=== PATIENT | female | born 1955 | race African-American/Black ===

== ENCOUNTER 2018-05-13 20:30 | Emergency (ER) | payer BC ==
[2018-05-13 20:47] VITALS: BMI 25.3
--- NOTE | 2018-05-13 20:47 | PDOC ---
Rapid Medical Evaluation Medical Evaluation: I have performed a brief in-person evaluation of this patient. The patient presents with a chief complaint of: eating a piece of steak and felt choking sensation around 1.5 hours ago; someone attempted Heimlich but instead of meat coming out, it moved down; feels it is now stuck in the esophagus Pertinent physical exam findings: In NAD, no respiratory distress I have ordered the following: CT chest The patient will proceed to the ED for further evaluation. 05/13/18 20:42
--- NOTE | 2018-05-13 23:37 | PDOC ---
*Physical Exam - Vital Signs Last Vital Signs Temp Pulse Resp BP Pulse Ox 97.1 F L 100 H 16 179/92 H 98 05/13/18 20:45 05/13/18 20:45 05/13/18 20:45 05/13/18 20:45 05/13/18 20:45 Medical Decision Making - Medical Decision Making 05/13/18 23:37 Patient seen by the advanced practice provider under my direct supervision. Ancillary testing reviewed as necessary. I agree with plan as outlined by the advanced practice provider. *DC/Admit/Observation/Transfer Diagnosis at time of Disposition: Choking sensation, Lung cyst - Discharge Dispostion Disposition: HOME Condition at time of disposition: Fair - Referrals Referrals: ON STAFF,NOT [Primary Care Provider] - - Patient Instructions Additional Instructions: The CAT scan showed multiple pulmonary cysts in both lungs. Continue to follow-up with her primary doctor as an outpatient for evaluation of this CT finding. The CAT scan showed no airway obstruction or retained foreign body. Return to emergency department for any new or worsening symptoms. Thank you very much for choosing us to provide your emergent health care needs. - Post Discharge Activity
--- NOTE | 2018-05-13 23:54 | PDOC ---
History of Present Illness - General Chief Complaint: Sore Throat Stated Complaint: CHOCKING ON MEAT ONE HOUR AGO Time Seen by Provider: 05/13/18 20:41 History Source: Patient Exam Limitations: No Limitations - History of Present Illness Initial Comments: 05/13/18 23:52 HISTORY OF PRESENT ILLNESS: This 70-year-old woman past medical history of non- insulin-dependent diabetes presents emergency department for evaluation of choking while eating dinner tonight. Patient reports she ate a piece of beef emulsion was a pain attention and did not thoroughly chew she tried to swallow causing her to have a choking sensation. She reports gagging and attempted to perform the Heimlich maneuver on herself and drinking water. This did not clear up the sensation. Patient then ran into the hallway of her apartment building and had a neighbor try to perform abdominal thrusts until eventually the food bolus was able to pass in the choking sensation subsided. Patient reports when she arrived in the emergency department she felt the food was "stuck in my stomach." No recent travel or sick contacts. PAST MEDICAL HISTORY: see HPI SURGICAL HISTORY: Denies ALLERGIES: No known drug allergies REVIEW OF SYSTEMS General/Constitutional: Denies fever or chills. Denies weakness, weight change. HEENT: Denies change in vision. Denies ear pain or discharge. Denies sore throat. Cardiovascular: Denies chest pain or shortness of breath. Respiratory: see HPI Gastrointestinal: Denies nausea, vomiting, diarrhea or constipation. Denies rectal bleeding. Genitourinary: Denies dysuria, frequency, or change in urination. Musculoskeletal: Denies joint or muscle swelling or pain. Denies neck or back pain. Skin and breasts: Denies rash or easy bruising. Neurologic: Denies headache, vertigo, loss of consciousness, or loss of sensation. Psychiatric: Denies depression or anxiety. Endocrine: Denies increased thirst. Denies abnormal weight change. Hematologic/Lymphatic: Denies anemia, easy bleeding, or history of blood clots. Allergic/Immunologic: Denies hives or skin allergy. Denies latex allergy. PHYSICAL EXAM General Appearance: Well-appearing, appropriately dressed. No apparent distress , no intoxication. HEENT: EOMI, PERRLA, normal ENT inspection, normal voice, TMs normal, pharynx normal. No conjunctival pallor. No photophobia, scleral icterus. Neck: Supple. Trachea midline. No tenderness, rigidity, carotid bruit, stridor , lymphadenopathy, or thyromegaly. Respiratory/Chest: Lungs CTAB. No shortness of breath, chest tenderness, respiratory distress, accessory muscle use. No crackles, rales, rhonchi, stridor , wheezing, dullness Cardiovascular: RRR. S1, S2. No JVD, murmur, bradycardia, tachycardia. Vascular Pulses: Dorsalis-Pedis (R): 2+, Dorsalis-Pedis (L): 2+ Gastrointestinal/Abdominal: Normal bowel sounds. Abdomen soft, non-distended. No tenderness or rebound tenderness. No organomegaly, pulsatile mass, guarding, hernia, hepatomegaly, splenomegaly. Lymphatic: No adenopathy, tenderness. Musculoskeletal/Extremities: Normal inspection. FROM of all extremities, normal capillary refill. Pelvis Stable. No CVA tenderness. No tenderness to extremities, pedal edema, swelling, erythema or deformity. Integumentary: Appropriate color, dry, warm. No cyanosis, erythema, jaundice or rash Neurologic: metal furniture assembler II-XII intact. Fully oriented, alert. Appropriate mood/affect. Motor strength 5/5. No appreciable EOM palsy, facial droop or sensory deficit. Past History - Past Medical History Allergies/Adverse Reactions: Allergies Allergy/AdvReac Type Severity Reaction Status Date / Time No Known Allergies Allergy Verified 05/13/18 20:47 COPD: No - Suicide/Smoking/Psychosocial Hx Smoking History: Never smoked Have you smoked in the past 12 months: No Information on smoking cessation initiated: No Hx Alcohol Use: No Drug/Substance Use Hx: No *Physical Exam - Vital Signs Last Vital Signs Temp Pulse Resp BP Pulse Ox 97.1 F L 100 H 16 179/92 H 98 05/13/18 20:45 05/13/18 20:45 05/13/18 20:45 05/13/18 20:45 05/13/18 20:45 Moderate Sedation - Procedure Monitoring Vital Signs: Procedure Monitoring Vital Signs Temperature 97.1 F L 05/13/18 20:45 Pulse Rate 100 H 05/13/18 20:45 Respiratory Rate 16 05/13/18 20:45 Blood Pressure 179/92 H 05/13/18 20:45 O2 Sat by Pulse Oximetry (%) 98 05/13/18 20:45 Medical Decision Making - Medical Decision Making 05/13/18 23:54 A/P: 62-year-old woman for evaluation of resolved choking sensation CAT scan results pending Reassess 05/14/18 00:37 CT of the chest as read by imaging media professional: 1. No evidence of focal infiltrate, pleural effusion or pneumothorax. Intrathoracic airway normal. 2. Multiple bilateral pulmonary cyst present. [address] scan of the chest, unenhanced. Patient states her pulmonary cysts are not a new finding and her primary doctor is currently working her up as an outpatient. There is no airway obstruction I will discharge the patient home to continue her outpatient workup for pulmonary cysts. I discussed the physical exam findings, ancillary test results and final diagnoses with the patient. I answered all of the patient's questions. The patient was satisfied with the care received and felt comfortable with the discharge plan and treatment plan. The patient will call their primary care physician within 24 hours to arrange follow-up and will return to the Emergency Department with any new, persistent or worsening symptoms. *DC/Admit/Observation/Transfer Diagnosis at time of Disposition: Choking sensation, Lung cyst - Discharge Dispostion Disposition: HOME Condition at time of disposition: Fair Decision to Admit order: No - Referrals Referrals: ON STAFF,NOT [Primary Care Provider] - - Patient Instructions Additional Instructions: The CAT scan showed multiple pulmonary cysts in both lungs. Continue to follow-up with her primary doctor as an outpatient for evaluation of this CT finding. The CAT scan showed no airway obstruction or retained foreign body. Return to emergency department for any new or worsening symptoms. Thank you very much for choosing us to provide your emergent health care needs. - Post Discharge Activity
[2018-05-14 01:16] VITALS: BP 136/78; PULSE 88; TEMP 98.5
== END 2018-05-14 01:16 | disposition home or self-care (01) ==
LOC: JER 20:30 → JERFT 20:30 → JER 05-14 01:16
DX: R09.89 Other specified symptoms and signs involving the circulatory and respiratory systems (principal); J98.4 Other disorders of lung
CPT/HCPCS: 71250-TC; 99281-25

== ENCOUNTER 2020-10-20 21:51 | Inpatient (IN) | payer BC ==
[2020-10-20 22:05] VITALS: BMI 21.9
[2020-10-20] MEDS ORDERED: SODIUM CHLORIDE 0.9% 500 ML INFUS.BAG IV ONE (22:47)
[2020-10-20] MEDS ORDERED: ONDANSETRON 4 MG/2 ML VIAL IVPUSH ONE (22:53)
[2020-10-20] MEDS ORDERED: ALBUTEROL SO4 2.5/IPRATROPIUM 0.5 INH SOL 3 ML VIAL.NEB. NEB ONE ×2 (22:53→22:59)
[2020-10-20] MEDS ORDERED: ONDANSETRON 4 MG/2 ML VIAL ONE (23:00)
[2020-10-20 23:10] LABS: BASO % 0.4 % (0-2.0); EOS % 0.1 % (0-4.5); HEMATOCRIT 32.5 % (32.4-45.2); HEMOGLOBIN 10.8 GM/dL (10.7-15.3); LYMPH % 3.7 % (8-40); MCH 28.5 pg (25.7-33.7); MCHC 33.2 g/dl (32.0-36.0); MEAN PLT VOLUME 6.2 fl (7.5-11.1); MONO % 5.2 % (3.8-10.2); NEUT % 90.6 % (42.8-82.8); PLATELET COUNT 435 10^3/uL (134-434); RBC 3.78 M/mm3 (3.60-5.2); RDW 16.7 % (11.6-15.6); WHITE BLOOD COUNT 13.8 K/mm3 (4.0-10.0)
[2020-10-20 23:13] LABS: VENOUS BASE EXCESS 0.8 mmol/L (-2-2); VENOUS O2 SATURATION 44.1 % (70-80); VENOUS PCO2 44.8 mmHg (38-52); VENOUS PH 7.385 (7.310-7.410)
[2020-10-20 23:27] LABS: CHLORIDE 90 mmol/L (98-107); SODIUM 125 mmol/L (136-145)
[2020-10-20 23:29] LABS: CALCIUM 8.4 mg/dL (8.5-10.1)
[2020-10-20 23:31] LABS: ALBUMIN 2.6 g/dl (3.4-5.0); ANION GAP 9 MMOL/L (8-16); BLOOD UREA NITROGEN 11.7 mg/dL (7-18); CO2 25 mmol/L (21-32); GLUCOSE,RANDOM 121 mg/dL (74-106)
[2020-10-20 23:34] LABS: CREATININE 0.6 mg/dL (0.55-1.3); SGOT/AST 666 U/L (15-37); SGPT/ALT 220 U/L (13-61)
[2020-10-20 23:35] LABS: BILIRUBIN,TOTAL 0.4 mg/dL (0.2-1)
[2020-10-20 23:37] LABS: ALK PHOS 95 U/L (45-117)
[2020-10-20 23:41] LABS: INR 1.18 (0.83-1.09); PROTHROMBIN TIME (PATIENT) 14.5 SEC (9.7-13.0)
[2020-10-20 23:43] LABS: ACTIVATED PTT 30.6 SECONDS (25.2-36.5)
[2020-10-20 23:44] LABS: TOT PROT 8.2 g/dl (6.4-8.2)
[2020-10-21] MEDS ORDERED: DEXAMETHASONE SOD PHOSPHATE 4 MG/1 ML VIAL IVPUSH ONE (00:07)
[2020-10-21] MEDS ORDERED: PIPERACILLIN/TAZOB 3.375 GM 3.375 GM in DEXTROSE 5%-WATER - 50 ML IVPB ONE (00:07)
[2020-10-21] MEDS ORDERED: PIPERACILLIN/TAZOB 3.375 GM 3.375 GM/50 ML BAG IVPB ONE (00:23)
[2020-10-21] MEDS ORDERED: DEXAMETHASONE SOD PHOSPHATE 10 MG/1 ML VIAL ONE (00:23)
[2020-10-21] MEDS ORDERED: METOCLOPRAMIDE HCL INJECTION 10 MG/2 ML VIAL IVPUSH ONE (09:33)
[2020-10-21] MEDS: DEXAMETHASONE SOD PHOSPHATE 10 MG/1 ML VIAL IVPUSH SCH (10:29)
[2020-10-21] MEDS: ENOXAPARIN NA (PORCINE) 40 MG/0.4 ML DISP.SYRIN SQ SCH (10:29)
[2020-10-21 11:33] LABS: HEMATOCRIT 35.7 % (32.4-45.2); HEMOGLOBIN 11.7 GM/dL (10.7-15.3); MCH 28.8 pg (25.7-33.7); MCHC 32.8 g/dl (32.0-36.0); MEAN CELL VOLUME 87.6 fl (80-96); MEAN PLT VOLUME 6.4 fl (7.5-11.1); PLATELET COUNT 416 10^3/uL (134-434); RBC 4.07 M/mm3 (3.60-5.2); RDW 16.6 % (11.6-15.6); WHITE BLOOD COUNT 17.5 K/mm3 (4.0-10.0)
[2020-10-21 11:57] LABS: CHLORIDE 93 mmol/L (98-107); SODIUM 129 mmol/L (136-145)
[2020-10-21 12:00] LABS: CALCIUM 8.5 mg/dL (8.5-10.1)
[2020-10-21 12:01] LABS: ALBUMIN 2.6 g/dl (3.4-5.0); ANION GAP 12 MMOL/L (8-16); BLOOD UREA NITROGEN 14.2 mg/dL (7-18); CO2 24 mmol/L (21-32); GLUCOSE,RANDOM 144 mg/dL (74-106); MAGNESIUM 2.3 mg/dL (1.8-2.4)
[2020-10-21 12:02] LABS: SGOT/AST 809 U/L (15-37); SGPT/ALT 293 U/L (13-61)
[2020-10-21 12:04] LABS: BILIRUBIN,TOTAL 0.3 mg/dL (0.2-1); CHOLESTEROL 151 mg/dL (50-200); CREATININE 0.8 mg/dL (0.55-1.3); LDL CHOLESTEROL (ONLY SJRH) 86 mg/dL (5-100); PHOSPHOROUS 4.4 mg/dL (2.5-4.9); TOT PROT 7.5 g/dl (6.4-8.2); TRIGLYCERIDES 117 mg/dL (0-150)
[2020-10-21 12:05] LABS: ALK PHOS 96 U/L (45-117); HDL CHOLESTEROL 33 mg/dL (40-60)
[2020-10-21 12:06] LABS: ANISOCYTOSIS 0; HELMET CELLS 0; HOWELL-JOLLY BODIES 0; MACROCYTOSIS 0; OVALOCYTE 0; PLATELET ESTIMATE NORMAL; ROULEAU 0; SICKELED CELLS 0; TARGET CELLS 0; TEAR DROP CELLS 0; TOXIC GRANULATION 0
[2020-10-21] MEDS ORDERED: ACETAMINOPHEN 1000 MG/100 ML VIAL (NON FORMULARY) IVPB PRN (13:15)
[2020-10-21] MEDS ORDERED: DEXTROSE 5%-WATER 100 ML IVPB ONE ×2 (14:30→18:51)
[2020-10-21] MEDS ORDERED: PIPERACILLIN/TAZOBACTAM 4.5 GM VIAL IVPB ONE ×2 (14:30→18:50)
[2020-10-21] MEDS: PIPERACILLIN/TAZOB 4.5 GM 4.5 GM in DEXTROSE 5%-WATER 100 ML IVPB SCH ×2 (14:39→19:41)
[2020-10-21] MEDS: SODIUM CHLORIDE 1,000 ML IV SCH (16:16)
[2020-10-21] MEDS: metoPROLOL SUCCINATE 25 MG TAB.SR.24H (FP) PO SCH (16:17)
[2020-10-21] MEDS: LEVOTHYROXINE NA 50 MCG TABLET (FP) PO SCH (16:17)
[2020-10-21] MEDS: INSULIN SLIDING SCALE (NOVOLOG) 1 VIAL SQ SCH ×2 (16:27→21:44)
[2020-10-21] MEDS ORDERED: METOCLOPRAMIDE HCL INJECTION 10 MG/2 ML VIAL IVPUSH PRN (16:30)
[2020-10-21 16:54] LABS: CALCIUM 8.2 mg/dL (8.5-10.1)
[2020-10-21 16:55] LABS: BLOOD UREA NITROGEN 15.3 mg/dL (7-18)
[2020-10-21 16:57] LABS: CREATININE 0.6 mg/dL (0.55-1.3)
[2020-10-21] MEDS: METOCLOPRAMIDE HCL INJECTION 10 MG/2 ML VIAL IVPUSH PRN (21:51)
[2020-10-22] MEDS ORDERED: DEXTROSE 5%-WATER 100 ML IVPB ONE ×3 (01:46→16:35)
[2020-10-22] MEDS ORDERED: PIPERACILLIN/TAZOBACTAM 4.5 GM VIAL IVPB ONE ×3 (01:46→16:34)
[2020-10-22] MEDS: PIPERACILLIN/TAZOB 4.5 GM 4.5 GM in DEXTROSE 5%-WATER 100 ML IVPB SCH ×3 (02:00→17:16)
[2020-10-22] MEDS: METOCLOPRAMIDE HCL INJECTION 10 MG/2 ML VIAL IVPUSH PRN (03:00)
[2020-10-22] MEDS: LEVOTHYROXINE NA 50 MCG TABLET (FP) PO SCH (07:00)
[2020-10-22] MEDS: INSULIN SLIDING SCALE (NOVOLOG) 1 VIAL SQ SCH ×4 (07:00→21:46)
[2020-10-22] MEDS ORDERED: ONDANSETRON 4 MG/2 ML VIAL IVPUSH ONE (07:39)
[2020-10-22 09:20] LABS: HEMATOCRIT 32.2 % (32.4-45.2); HEMOGLOBIN 10.7 GM/dL (10.7-15.3); MCH 28.8 pg (25.7-33.7); MCHC 33.2 g/dl (32.0-36.0); MEAN CELL VOLUME 86.5 fl (80-96); MEAN PLT VOLUME 6.7 fl (7.5-11.1); PLATELET COUNT 441 10^3/uL (134-434); RBC 3.73 M/mm3 (3.60-5.2); RDW 16.7 % (11.6-15.6); WHITE BLOOD COUNT 20.8 K/mm3 (4.0-10.0)
[2020-10-22] MEDS: traMADol HCL 50 MG TABLET PO PRN ×2 (09:32→17:13)
[2020-10-22] MEDS: ENOXAPARIN NA (PORCINE) 40 MG/0.4 ML DISP.SYRIN SQ SCH (09:32)
[2020-10-22] MEDS: metoPROLOL SUCCINATE 25 MG TAB.SR.24H (FP) PO SCH (09:32)
[2020-10-22] MEDS: DEXAMETHASONE SOD PHOSPHATE 10 MG/1 ML VIAL IVPUSH SCH (09:33)
[2020-10-22 10:03] LABS: CALCIUM 8.4 mg/dL (8.5-10.1)
[2020-10-22 10:04] LABS: ALBUMIN 2.4 g/dl (3.4-5.0); BLOOD UREA NITROGEN 16.7 mg/dL (7-18)
[2020-10-22 10:07] LABS: CREATININE 0.5 mg/dL (0.55-1.3)
[2020-10-22 10:09] LABS: BILIRUBIN,TOTAL 0.6 mg/dL (0.2-1); TOT PROT 6.6 g/dl (6.4-8.2)
[2020-10-22 10:11] LABS: ANISOCYTOSIS 1+; MACROCYTOSIS 0; PLATELET ESTIMATE NORMAL
[2020-10-22] MEDS ORDERED: ONDANSETRON 4 MG/2 ML VIAL IVPUSH PRN (10:24)
[2020-10-22] MEDS: FAMOTIDINE 20 MG/50 ML IVPB 20 MG/50 ML MG IVPB SCH ×2 (11:54→22:20)
[2020-10-22] MEDS: SODIUM CHLORIDE 1,000 ML IV SCH (16:41)
[2020-10-22] MEDS: ONDANSETRON 4 MG/2 ML VIAL IVPUSH PRN (21:37)
[2020-10-23] MEDS ORDERED: PIPERACILLIN/TAZOBACTAM 4.5 GM VIAL IVPB ONE ×3 (00:53→17:00)
[2020-10-23] MEDS ORDERED: DEXTROSE 5%-WATER 100 ML IVPB ONE ×3 (00:53→17:01)
[2020-10-23] MEDS: PIPERACILLIN/TAZOB 4.5 GM 4.5 GM in DEXTROSE 5%-WATER 100 ML IVPB SCH ×3 (01:59→17:38)
[2020-10-23] MEDS: traMADol HCL 50 MG TABLET PO PRN (03:25)
[2020-10-23] MEDS: INSULIN SLIDING SCALE (NOVOLOG) 1 VIAL SQ SCH ×4 (06:32→21:35)
[2020-10-23] MEDS: LEVOTHYROXINE NA 50 MCG TABLET (FP) PO SCH (06:32)
[2020-10-23 07:34] LABS: BASO % 0.1 % (0-2.0); EOS % 0.1 % (0-4.5); HEMATOCRIT 31.6 % (32.4-45.2); HEMOGLOBIN 10.5 GM/dL (10.7-15.3); LYMPH % 1.5 % (8-40); MCH 28.4 pg (25.7-33.7); MCHC 33.1 g/dl (32.0-36.0); MEAN CELL VOLUME 85.5 fl (80-96); MEAN PLT VOLUME 6.7 fl (7.5-11.1); MONO % 2.5 % (3.8-10.2); NEUT % 95.8 % (42.8-82.8); PLATELET COUNT 395 10^3/uL (134-434); RBC 3.69 M/mm3 (3.60-5.2); RDW 16.6 % (11.6-15.6); WHITE BLOOD COUNT 19.3 K/mm3 (4.0-10.0)
[2020-10-23 07:52] LABS: CHLORIDE 94 mmol/L (98-107); SODIUM 129 mmol/L (136-145)
[2020-10-23 07:57] LABS: ALBUMIN 2.2 g/dl (3.4-5.0); ANION GAP 8 MMOL/L (8-16); BLOOD UREA NITROGEN 12.6 mg/dL (7-18); CALCIUM 7.6 mg/dL (8.5-10.1); CO2 26 mmol/L (21-32); GLUCOSE,RANDOM 152 mg/dL (74-106)
[2020-10-23 07:58] LABS: SGPT/ALT 423 U/L (13-61)
[2020-10-23 07:59] LABS: CREATININE 0.4 mg/dL (0.55-1.3); PHOSPHOROUS 3.1 mg/dL (2.5-4.9)
[2020-10-23 08:00] LABS: BILIRUBIN,TOTAL 0.3 mg/dL (0.2-1); TOT PROT 6.6 g/dl (6.4-8.2)
[2020-10-23 08:02] LABS: ALK PHOS 84 U/L (45-117)
[2020-10-23] MEDS ORDERED: SODIUM CHLORIDE 1,000 ML IV SCH (08:15)
[2020-10-23 08:55] LABS: LDH 1480 U/L (84-246); SGOT/AST 1068 U/L (15-37)
[2020-10-23 08:57] LABS: ANISOCYTOSIS 0; HELMET CELLS 0; HOWELL-JOLLY BODIES 0; MACROCYTOSIS 0; OVALOCYTE 0; PLATELET ESTIMATE NORMAL; ROULEAU 0; SICKELED CELLS 0; TARGET CELLS 0; TEAR DROP CELLS 0; TOXIC GRANULATION 0
[2020-10-23 09:19] LABS: ERYTHROCYTE SEDIMENTATION RATE 57 mm/hr (0-30)
[2020-10-23] MEDS: ENOXAPARIN NA (PORCINE) 40 MG/0.4 ML DISP.SYRIN SQ SCH (09:31)
[2020-10-23] MEDS: FAMOTIDINE 20 MG/50 ML IVPB 20 MG/50 ML MG IVPB SCH ×2 (09:33→21:19)
[2020-10-23] MEDS: metoPROLOL SUCCINATE 25 MG TAB.SR.24H (FP) PO SCH (09:33)
[2020-10-23] MEDS: DEXAMETHASONE SOD PHOSPHATE 10 MG/1 ML VIAL IVPUSH SCH (09:34)
[2020-10-23] MEDS: ONDANSETRON 4 MG/2 ML VIAL IVPUSH PRN (11:13)
[2020-10-23] MEDS: METOCLOPRAMIDE HCL INJECTION 10 MG/2 ML VIAL IVPUSH PRN (13:00)
[2020-10-23] MEDS: METOCLOPRAMIDE HCL INJECTION 10 MG/2 ML VIAL IVPUSH SCH ×2 (13:00→21:19)
[2020-10-23] MEDS ORDERED: morphine SULFATE 4 MG/ML VIAL IVPUSH PRN (15:07)
[2020-10-23] MEDS ORDERED: morphine CARPU-JECT 2 MG/1 ML DISP.SYRIN IVPUSH SCH (15:15)
[2020-10-23] MEDS: SODIUM CHLORIDE 1,000 ML IV SCH ×2 (16:12→21:22)
[2020-10-24] MEDS ORDERED: PIPERACILLIN/TAZOBACTAM 4.5 GM VIAL IVPB ONE ×3 (01:45→16:36)
[2020-10-24] MEDS ORDERED: DEXTROSE 5%-WATER 100 ML IVPB ONE ×3 (01:46→16:37)
[2020-10-24] MEDS: ONDANSETRON 4 MG/2 ML VIAL IVPUSH PRN ×2 (01:58→10:22)
[2020-10-24] MEDS: PIPERACILLIN/TAZOB 4.5 GM 4.5 GM in DEXTROSE 5%-WATER 100 ML IVPB SCH ×3 (01:58→17:01)
[2020-10-24] MEDS: METOCLOPRAMIDE HCL INJECTION 10 MG/2 ML VIAL IVPUSH SCH ×4 (03:53→21:10)
[2020-10-24] MEDS: MORPHINE SULFATE 2 MG/ML VIAL IVPUSH PRN ×2 (04:53→10:22)
[2020-10-24] MEDS: LEVOTHYROXINE NA 50 MCG TABLET (FP) PO SCH (06:33)
[2020-10-24] MEDS: INSULIN SLIDING SCALE (NOVOLOG) 1 VIAL SQ SCH ×4 (06:40→21:24)
[2020-10-24] MEDS: SODIUM CHLORIDE 1,000 ML IV SCH ×4 (06:41→21:04)
[2020-10-24 07:41] LABS: BASO % 0.5 % (0-2.0); HEMATOCRIT 28.7 % (32.4-45.2); HEMOGLOBIN 9.7 GM/dL (10.7-15.3); LYMPH % 1.6 % (8-40); MCH 29.2 pg (25.7-33.7); MCHC 33.6 g/dl (32.0-36.0); MEAN PLT VOLUME 6.4 fl (7.5-11.1); MONO % 2.8 % (3.8-10.2); NEUT % 95.1 % (42.8-82.8); PLATELET COUNT 393 10^3/uL (134-434); RDW 16.4 % (11.6-15.6); WHITE BLOOD COUNT 18.5 K/mm3 (4.0-10.0)
[2020-10-24 08:07] LABS: ALBUMIN 1.9 g/dl (3.4-5.0)
[2020-10-24 08:08] LABS: BLOOD UREA NITROGEN 12.4 mg/dL (7-18)
[2020-10-24 08:10] LABS: CREATININE 0.4 mg/dL (0.55-1.3)
[2020-10-24 08:11] LABS: PHOSPHOROUS 2.5 mg/dL (2.5-4.9)
[2020-10-24 08:12] LABS: BILIRUBIN,TOTAL 0.7 mg/dL (0.2-1); TOT PROT 5.4 g/dl (6.4-8.2)
[2020-10-24 10:09] LABS: ANISOCYTOSIS 0; MACROCYTOSIS 0; PLATELET ESTIMATE NORMAL
[2020-10-24] MEDS: ENOXAPARIN NA (PORCINE) 40 MG/0.4 ML DISP.SYRIN SQ SCH (10:19)
[2020-10-24] MEDS: DEXAMETHASONE SOD PHOSPHATE 10 MG/1 ML VIAL IVPUSH SCH (10:20)
[2020-10-24] MEDS: metoPROLOL SUCCINATE 25 MG TAB.SR.24H (FP) PO SCH (10:20)
[2020-10-24] MEDS: FAMOTIDINE 20 MG/50 ML IVPB 20 MG/50 ML MG IVPB SCH ×2 (10:20→21:11)
[2020-10-24] MEDS ORDERED: guaiFENesin/D-METHORPHAN HB 10 ML UNIT-DOSE CUPS PO PRN (12:36)
[2020-10-24] MEDS ORDERED: HALOPERIDOL 1 MG TABLET PO ONE (15:04)
[2020-10-24] MEDS ORDERED: ONDANSETRON 4 MG/2 ML VIAL IVPUSH PRN (20:35)
[2020-10-24] MEDS ORDERED: MORPHINE SULFATE 2 MG/ML VIAL IVPUSH PRN (20:35)
[2020-10-25] MEDS: guaiFENesin/D-METHORPHAN HB 10 ML UNIT-DOSE CUPS PO PRN ×2 (02:11→09:56)
[2020-10-25] MEDS: morphine SULFATE 4 MG/ML VIAL IVPUSH PRN (02:11)
[2020-10-25] MEDS ORDERED: DEXTROSE 5%-WATER 100 ML IVPB ONE ×3 (02:56→17:55)
[2020-10-25] MEDS ORDERED: PIPERACILLIN/TAZOBACTAM 4.5 GM VIAL IVPB ONE ×3 (02:56→17:55)
[2020-10-25] MEDS: PIPERACILLIN/TAZOB 4.5 GM 4.5 GM in DEXTROSE 5%-WATER 100 ML IVPB SCH ×3 (02:59→17:59)
[2020-10-25] MEDS: METOCLOPRAMIDE HCL INJECTION 10 MG/2 ML VIAL IVPUSH SCH ×4 (04:27→22:08)
[2020-10-25] MEDS: SODIUM CHLORIDE 1,000 ML IV SCH ×3 (07:25→22:08)
[2020-10-25] MEDS ORDERED: INSULIN (NOVOLOG) ASPART 100 UNITS/ML 10ML VIAL ONE (07:37)
[2020-10-25] MEDS: LEVOTHYROXINE NA 50 MCG TABLET (FP) PO SCH (07:39)
[2020-10-25] MEDS: INSULIN SLIDING SCALE (NOVOLOG) 1 VIAL SQ SCH ×4 (07:39→22:22)
[2020-10-25] MEDS: ENOXAPARIN NA (PORCINE) 40 MG/0.4 ML DISP.SYRIN SQ SCH (09:53)
[2020-10-25] MEDS: metoPROLOL SUCCINATE 25 MG TAB.SR.24H (FP) PO SCH (09:53)
[2020-10-25] MEDS: FAMOTIDINE 20 MG/50 ML IVPB 20 MG/50 ML MG IVPB SCH ×2 (09:54→22:09)
[2020-10-25 12:46] LABS: HEMATOCRIT 29.3 % (32.4-45.2); HEMOGLOBIN 9.6 GM/dL (10.7-15.3); MCH 28.3 pg (25.7-33.7); MCHC 32.8 g/dl (32.0-36.0); MEAN CELL VOLUME 86.2 fl (80-96); MEAN PLT VOLUME 6.7 fl (7.5-11.1); PLATELET COUNT 368 10^3/uL (134-434); RDW 16.6 % (11.6-15.6)
[2020-10-25 13:06] LABS: CHLORIDE 101 mmol/L (98-107); SODIUM 134 mmol/L (136-145)
[2020-10-25 13:13] LABS: ANION GAP 7 MMOL/L (8-16); CO2 27 mmol/L (21-32)
[2020-10-25 13:14] LABS: MAGNESIUM 1.7 mg/dL (1.8-2.4); SGOT/AST 763 U/L (15-37); SGPT/ALT 481 U/L (13-61)
[2020-10-25 13:15] LABS: TOT PROT 5.2 g/dl (6.4-8.2)
[2020-10-25 13:17] LABS: CREATININE 0.4 mg/dL (0.55-1.3)
[2020-10-25 13:18] LABS: ALBUMIN 1.9 g/dl (3.4-5.0); CALCIUM 8.1 mg/dL (8.5-10.1)
[2020-10-25 13:19] LABS: BILIRUBIN,TOTAL 0.3 mg/dL (0.2-1); BLOOD UREA NITROGEN 14.3 mg/dL (7-18); GLUCOSE,RANDOM 194 mg/dL (74-106)
[2020-10-25 13:21] LABS: ALK PHOS 81 U/L (45-117)
[2020-10-25 13:22] LABS: BILIRUBIN,DIRECT 0.1 mg/dL (0.0-0.2); PHOSPHOROUS 2.4 mg/dL (2.5-4.9)
[2020-10-25 13:48] LABS: LDH 614 U/L (84-246)
[2020-10-25] MEDS ORDERED: POTASSIUM CHLORIDE TABS 20 MEQ TABLET.ER (FP) PO ONE (16:57)
[2020-10-25] MEDS ORDERED: NAPH,MB-DB/K PH,MBDB POWDER PACKET PO ONE (16:58)
[2020-10-25] MEDS ORDERED: MAGNESIUM OXIDE 400 MG TABLET (FP) PO ONE (16:58)
[2020-10-25] MEDS: DRONABINOL 2.5 MG CAPSULE PO SCH (17:59)
[2020-10-26] MEDS ORDERED: DEXTROSE 5%-WATER 100 ML IVPB ONE ×3 (02:21→16:40)
[2020-10-26] MEDS ORDERED: PIPERACILLIN/TAZOBACTAM 4.5 GM VIAL IVPB ONE ×3 (02:21→16:40)
[2020-10-26] MEDS: METOCLOPRAMIDE HCL INJECTION 10 MG/2 ML VIAL IVPUSH SCH ×4 (02:22→21:19)
[2020-10-26] MEDS: PIPERACILLIN/TAZOB 4.5 GM 4.5 GM in DEXTROSE 5%-WATER 100 ML IVPB SCH ×3 (02:22→17:00)
[2020-10-26] MEDS: morphine SULFATE 4 MG/ML VIAL IVPUSH PRN ×2 (02:35→22:23)
[2020-10-26] MEDS: LEVOTHYROXINE NA 50 MCG TABLET (FP) PO SCH (06:22)
[2020-10-26] MEDS: INSULIN SLIDING SCALE (NOVOLOG) 1 VIAL SQ SCH ×4 (06:22→21:29)
[2020-10-26] MEDS: guaiFENesin/D-METHORPHAN HB 10 ML UNIT-DOSE CUPS PO PRN ×2 (06:24→20:12)
[2020-10-26] MEDS: ENOXAPARIN NA (PORCINE) 40 MG/0.4 ML DISP.SYRIN SQ SCH (11:05)
[2020-10-26] MEDS: FAMOTIDINE 20 MG/50 ML IVPB 20 MG/50 ML MG IVPB SCH ×2 (11:10→21:19)
[2020-10-26] MEDS: DRONABINOL 2.5 MG CAPSULE PO SCH ×2 (11:12→16:58)
[2020-10-26] MEDS: metoPROLOL SUCCINATE 25 MG TAB.SR.24H (FP) PO SCH (11:12)
[2020-10-26 12:09] LABS: HEMATOCRIT 30.6 % (32.4-45.2); HEMOGLOBIN 10.1 GM/dL (10.7-15.3); MCH 28.5 pg (25.7-33.7); MCHC 32.8 g/dl (32.0-36.0); MEAN CELL VOLUME 86.8 fl (80-96); MEAN PLT VOLUME 6.7 fl (7.5-11.1); PLATELET COUNT 405 10^3/uL (134-434); RBC 3.53 M/mm3 (3.60-5.2); RDW 16.9 % (11.6-15.6); WHITE BLOOD COUNT 17.3 K/mm3 (4.0-10.0)
[2020-10-26 12:28] LABS: CALCIUM 8.1 mg/dL (8.5-10.1)
[2020-10-26 12:29] LABS: ALBUMIN 2.1 g/dl (3.4-5.0); BLOOD UREA NITROGEN 11.3 mg/dL (7-18); MAGNESIUM 1.8 mg/dL (1.8-2.4)
[2020-10-26 12:32] LABS: CREATININE 0.4 mg/dL (0.55-1.3); PHOSPHOROUS 2.4 mg/dL (2.5-4.9)
[2020-10-26 12:33] LABS: BILIRUBIN,TOTAL 0.3 mg/dL (0.2-1)
[2020-10-26 12:34] LABS: TOT PROT 5.7 g/dl (6.4-8.2)
[2020-10-26 12:57] LABS: ANISOCYTOSIS 2+; MACROCYTOSIS 0; PLATELET ESTIMATE NORMAL
[2020-10-26] MEDS: SODIUM CHLORIDE 1,000 ML IV SCH (17:01)
[2020-10-26] MEDS ORDERED: methylPREDNISolone NA SUCC 40 MG/1 ML VIAL IVPB SCH (22:00)
[2020-10-26] MEDS: methylPREDNISolone NA SUCC 40 MG/1 ML VIAL IVPB SCH (22:17)
[2020-10-27] MEDS ORDERED: PIPERACILLIN/TAZOBACTAM 4.5 GM VIAL IVPB ONE ×3 (02:43→18:31)
[2020-10-27] MEDS ORDERED: DEXTROSE 5%-WATER 100 ML IVPB ONE ×3 (02:43→18:31)
[2020-10-27] MEDS: METOCLOPRAMIDE HCL INJECTION 10 MG/2 ML VIAL IVPUSH SCH ×4 (02:48→21:32)
[2020-10-27] MEDS: PIPERACILLIN/TAZOB 4.5 GM 4.5 GM in DEXTROSE 5%-WATER 100 ML IVPB SCH ×3 (02:57→18:33)
[2020-10-27] MEDS: SODIUM CHLORIDE 1,000 ML IV SCH ×2 (02:59→10:19)
[2020-10-27] MEDS: LEVOTHYROXINE NA 50 MCG TABLET (FP) PO SCH (07:14)
[2020-10-27] MEDS: INSULIN SLIDING SCALE (NOVOLOG) 1 VIAL SQ SCH ×4 (07:14→22:49)
[2020-10-27 07:56] LABS: EPI CELLS 7 /uL (0-25.1); HYALINE CASTS 1 /uL (0-3.1); URINE APPEARANCE CLEAR; URINE BACTERIA 4 /uL (0-1359); URINE BILIRUBIN NEGATIVE (NEGATIVE); URINE COLOR YELLOW; URINE GLUCOSE (UA) TRACE (NEGATIVE); URINE KETONE NEGATIVE (NEGATIVE); URINE LEUK ESTERASE NEGATIVE (NEGATIVE); URINE NITRITE NEGATIVE (NEGATIVE); URINE PROTEIN 2+ (NEGATIVE); URINE RBC 28 /uL (0-23.9); URINE WBC 3 /uL (0-25.8)
[2020-10-27 09:30] LABS: HEMATOCRIT 29.1 % (32.4-45.2); HEMOGLOBIN 9.8 GM/dL (10.7-15.3); MCH 29.1 pg (25.7-33.7); MCHC 33.8 g/dl (32.0-36.0); MEAN PLT VOLUME 6.8 fl (7.5-11.1); PLATELET COUNT 430 10^3/uL (134-434); RBC 3.38 M/mm3 (3.60-5.2); RDW 16.8 % (11.6-15.6); WHITE BLOOD COUNT 15.8 K/mm3 (4.0-10.0)
[2020-10-27 09:37] LABS: INR 1.22 (0.83-1.09); PROTHROMBIN TIME (PATIENT) 14.7 SEC (9.7-13.0)
[2020-10-27 09:39] LABS: ACTIVATED PTT 24.9 SECONDS (25.2-36.5)
[2020-10-27 10:04] LABS: ALBUMIN 2.1 g/dl (3.4-5.0); BLOOD UREA NITROGEN 11.7 mg/dL (7-18); CALCIUM 8.1 mg/dL (8.5-10.1); MAGNESIUM 1.8 mg/dL (1.8-2.4)
[2020-10-27 10:07] LABS: CREATININE 0.4 mg/dL (0.55-1.3)
[2020-10-27 10:08] LABS: BILIRUBIN,TOTAL 0.6 mg/dL (0.2-1); PHOSPHOROUS 2.6 mg/dL (2.5-4.9); TOT PROT 5.8 g/dl (6.4-8.2)
[2020-10-27] MEDS: guaiFENesin/D-METHORPHAN HB 10 ML UNIT-DOSE CUPS PO PRN ×3 (10:17→21:35)
[2020-10-27] MEDS: metoPROLOL SUCCINATE 25 MG TAB.SR.24H (FP) PO SCH (10:17)
[2020-10-27] MEDS: methylPREDNISolone NA SUCC 40 MG/1 ML VIAL IVPB SCH ×2 (10:19→23:05)
[2020-10-27] MEDS: FAMOTIDINE 20 MG/50 ML IVPB 20 MG/50 ML MG IVPB SCH ×2 (10:19→21:32)
[2020-10-27] MEDS: ENOXAPARIN NA (PORCINE) 40 MG/0.4 ML DISP.SYRIN SQ SCH (10:19)
[2020-10-27] MEDS ORDERED: POTASSIUM CHLORIDE TABS 20 MEQ TABLET.ER (FP) PO ONE (11:15)
[2020-10-27] MEDS: DRONABINOL 2.5 MG CAPSULE PO SCH ×2 (11:34→17:16)
[2020-10-27] MEDS ORDERED: FUROSEMIDE 40 MG/4 ML INJECTABLE VIAL IVPUSH ONE (20:29)
[2020-10-27] MEDS ORDERED: LORazepam 0.5 MG TABLET PO PRN (22:00)
[2020-10-28] MEDS ORDERED: DEXTROSE 5%-WATER 100 ML IVPB ONE ×3 (01:51→17:19)
[2020-10-28] MEDS ORDERED: PIPERACILLIN/TAZOBACTAM 4.5 GM VIAL IVPB ONE ×3 (01:51→17:19)
[2020-10-28] MEDS: PIPERACILLIN/TAZOB 4.5 GM 4.5 GM in DEXTROSE 5%-WATER 100 ML IVPB SCH ×3 (02:04→17:24)
[2020-10-28] MEDS: METOCLOPRAMIDE HCL INJECTION 10 MG/2 ML VIAL IVPUSH SCH ×4 (03:18→21:39)
[2020-10-28] MEDS: INSULIN SLIDING SCALE (NOVOLOG) 1 VIAL SQ SCH ×4 (06:07→21:57)
[2020-10-28] MEDS: LEVOTHYROXINE NA 50 MCG TABLET (FP) PO SCH (06:07)
[2020-10-28] MEDS: guaiFENesin/D-METHORPHAN HB 10 ML UNIT-DOSE CUPS PO PRN ×3 (06:13→17:24)
[2020-10-28] MEDS: AMINO ACIDS/PROTEIN HYDROLYS 30 ML LIQUID.PKT PO SCH ×2 (08:17→17:24)
[2020-10-28 09:40] LABS: HEMATOCRIT 27.9 % (32.4-45.2); HEMOGLOBIN 9.3 GM/dL (10.7-15.3); MCH 28.2 pg (25.7-33.7); MCHC 33.1 g/dl (32.0-36.0); MEAN CELL VOLUME 85.2 fl (80-96); MEAN PLT VOLUME 6.4 fl (7.5-11.1); PLATELET COUNT 362 10^3/uL (134-434); RBC 3.28 M/mm3 (3.60-5.2); RDW 17.2 % (11.6-15.6); WHITE BLOOD COUNT 18.3 K/mm3 (4.0-10.0)
[2020-10-28 09:47] LABS: INR 1.25 (0.83-1.09); PROTHROMBIN TIME (PATIENT) 15.3 SEC (9.7-13.0)
[2020-10-28 09:55] LABS: CALCIUM 8.3 mg/dL (8.5-10.1)
[2020-10-28 09:56] LABS: BLOOD UREA NITROGEN 14.4 mg/dL (7-18)
[2020-10-28 09:59] LABS: CREATININE 0.4 mg/dL (0.55-1.3)
[2020-10-28 10:01] LABS: BILIRUBIN,TOTAL 0.3 mg/dL (0.2-1); TOT PROT 5.4 g/dl (6.4-8.2)
[2020-10-28] MEDS: ENOXAPARIN NA (PORCINE) 40 MG/0.4 ML DISP.SYRIN SQ SCH (10:39)
[2020-10-28] MEDS: methylPREDNISolone NA SUCC 40 MG/1 ML VIAL IVPB SCH ×2 (10:39→21:39)
[2020-10-28] MEDS: FAMOTIDINE 20 MG/50 ML IVPB 20 MG/50 ML MG IVPB SCH ×2 (10:40→21:39)
[2020-10-28] MEDS: metoPROLOL SUCCINATE 25 MG TAB.SR.24H (FP) PO SCH (10:40)
[2020-10-28] MEDS: DRONABINOL 2.5 MG CAPSULE PO SCH ×2 (10:40→17:24)
[2020-10-28 11:15] LABS: ANISOCYTOSIS 0; HELMET CELLS 0; HOWELL-JOLLY BODIES 0; MACROCYTOSIS 0; OVALOCYTE 0; PLATELET ESTIMATE NORMAL; ROULEAU 0; SICKELED CELLS 0; TARGET CELLS 0; TEAR DROP CELLS 0; TOXIC GRANULATION 0
[2020-10-29] MEDS ORDERED: PIPERACILLIN/TAZOBACTAM 4.5 GM VIAL IVPB ONE ×2 (00:43→08:08)
[2020-10-29] MEDS ORDERED: DEXTROSE 5%-WATER 100 ML IVPB ONE ×2 (00:43→08:08)
[2020-10-29] MEDS: ALPRAZolam 0.25 MG TABLET PO PRN ×2 (00:53→21:28)
[2020-10-29] MEDS: PIPERACILLIN/TAZOB 4.5 GM 4.5 GM in DEXTROSE 5%-WATER 100 ML IVPB SCH ×2 (01:00→09:17)
[2020-10-29] MEDS: METOCLOPRAMIDE HCL INJECTION 10 MG/2 ML VIAL IVPUSH SCH ×4 (02:35→21:28)
[2020-10-29] MEDS: guaiFENesin/D-METHORPHAN HB 10 ML UNIT-DOSE CUPS PO PRN (03:24)
[2020-10-29] MEDS: LEVOTHYROXINE NA 50 MCG TABLET (FP) PO SCH (05:59)
[2020-10-29] MEDS: INSULIN SLIDING SCALE (NOVOLOG) 1 VIAL SQ SCH ×4 (05:59→21:46)
[2020-10-29] MEDS ORDERED: SODIUM CHLORIDE NASAL SPRAY 44 ML BOTTLE NS PRN (07:01)
[2020-10-29 07:40] LABS: BASO % 0.2 % (0-2.0); EOS % 0.1 % (0-4.5); HEMATOCRIT 28.4 % (32.4-45.2); HEMOGLOBIN 9.6 GM/dL (10.7-15.3); LYMPH % 1.4 % (8-40); MCH 29.1 pg (25.7-33.7); MCHC 33.6 g/dl (32.0-36.0); MEAN CELL VOLUME 86.5 fl (80-96); MEAN PLT VOLUME 7.3 fl (7.5-11.1); MONO % 1.2 % (3.8-10.2); NEUT % 97.1 % (42.8-82.8); PLATELET COUNT 355 10^3/uL (134-434); RBC 3.29 M/mm3 (3.60-5.2); RDW 17.3 % (11.6-15.6); WHITE BLOOD COUNT 18.1 K/mm3 (4.0-10.0)
[2020-10-29 07:47] LABS: INR 1.11 (0.83-1.09); PROTHROMBIN TIME (PATIENT) 13.6 SEC (9.7-13.0)
[2020-10-29 08:05] LABS: BLOOD UREA NITROGEN 18.9 mg/dL (7-18)
[2020-10-29 08:07] LABS: CALCIUM 8.3 mg/dL (8.5-10.1)
[2020-10-29 08:10] LABS: BILIRUBIN,TOTAL 0.5 mg/dL (0.2-1)
[2020-10-29 08:11] LABS: TOT PROT 5.5 g/dl (6.4-8.2)
[2020-10-29 08:12] LABS: CREATININE 0.5 mg/dL (0.55-1.3)
[2020-10-29] MEDS: AMINO ACIDS/PROTEIN HYDROLYS 30 ML LIQUID.PKT PO SCH ×2 (08:29→17:05)
[2020-10-29] MEDS ORDERED: PORTA CATH FLUSH 10 ML IVPUSH PRN (08:44)
[2020-10-29 08:56] LABS: ANISOCYTOSIS 0; HELMET CELLS 0; HOWELL-JOLLY BODIES 0; MACROCYTOSIS 0; OVALOCYTE 0; PLATELET ESTIMATE NORMAL; ROULEAU 0; SICKELED CELLS 0; TARGET CELLS 0; TEAR DROP CELLS 0; TOXIC GRANULATION 0
[2020-10-29] MEDS ORDERED: POTASSIUM CHLORIDE TABS 20 MEQ TABLET.ER (FP) PO ONE (09:15)
[2020-10-29] MEDS: methylPREDNISolone NA SUCC 40 MG/1 ML VIAL IVPB SCH ×2 (09:16→21:28)
[2020-10-29] MEDS: FAMOTIDINE 20 MG/50 ML IVPB 20 MG/50 ML MG IVPB SCH ×2 (09:16→21:28)
[2020-10-29] MEDS: metoPROLOL SUCCINATE 25 MG TAB.SR.24H (FP) PO SCH (09:16)
[2020-10-29] MEDS: ENOXAPARIN NA (PORCINE) 40 MG/0.4 ML DISP.SYRIN SQ SCH (09:17)
[2020-10-29 09:56] LABS: MAGNESIUM 1.9 mg/dL (1.8-2.4)
[2020-10-29 10:00] LABS: PHOSPHOROUS 3.5 mg/dL (2.5-4.9)
[2020-10-29] MEDS: BENZONATATE 200 MG PO PRN ×2 (11:04→17:24)
[2020-10-29] MEDS: DRONABINOL 2.5 MG CAPSULE PO SCH ×2 (11:04→17:05)
[2020-10-29] MEDS ORDERED: PT OWN MED DRAWER 7, Y5N ONE ×2 (11:28→17:25)
[2020-10-29] MEDS: guaiFENesin/CODEINE 10 ML UNIT-DOSE CUPS PO PRN ×2 (14:04→21:28)
[2020-10-30] MEDS: METOCLOPRAMIDE HCL INJECTION 10 MG/2 ML VIAL IVPUSH SCH ×4 (04:15→21:18)
[2020-10-30] MEDS: LEVOTHYROXINE NA 50 MCG TABLET (FP) PO SCH (06:23)
[2020-10-30] MEDS: INSULIN SLIDING SCALE (NOVOLOG) 1 VIAL SQ SCH ×4 (06:26→21:17)
[2020-10-30 07:45] LABS: HEMATOCRIT 29.9 % (32.4-45.2); HEMOGLOBIN 9.8 GM/dL (10.7-15.3); MCH 28.6 pg (25.7-33.7); MCHC 32.7 g/dl (32.0-36.0); MEAN CELL VOLUME 87.4 fl (80-96); MEAN PLT VOLUME 7.3 fl (7.5-11.1); PLATELET COUNT 292 10^3/uL (134-434); RBC 3.42 M/mm3 (3.60-5.2); RDW 17.3 % (11.6-15.6); WHITE BLOOD COUNT 20.2 K/mm3 (4.0-10.0)
[2020-10-30 07:53] LABS: INR 1.08 (0.83-1.09)
[2020-10-30 07:58] LABS: CALCIUM 8.2 mg/dL (8.5-10.1)
[2020-10-30 07:59] LABS: ALBUMIN 2.2 g/dl (3.4-5.0); BLOOD UREA NITROGEN 17.8 mg/dL (7-18)
[2020-10-30 08:02] LABS: CREATININE 0.4 mg/dL (0.55-1.3); PHOSPHOROUS 3.5 mg/dL (2.5-4.9)
[2020-10-30 08:03] LABS: BILIRUBIN,TOTAL 0.5 mg/dL (0.2-1); TOT PROT 5.7 g/dl (6.4-8.2)
[2020-10-30] MEDS: AMINO ACIDS/PROTEIN HYDROLYS 30 ML LIQUID.PKT PO SCH ×2 (08:41→18:03)
[2020-10-30 10:44] LABS: ANISOCYTOSIS 1+; MACROCYTOSIS 0; OVALOCYTE 1+; PLATELET ESTIMATE NORMAL; TARGET CELLS 1+; TEAR DROP CELLS 1+
[2020-10-30] MEDS ORDERED: FUROSEMIDE 40 MG/4 ML INJECTABLE VIAL IVPUSH ONE (11:10)
[2020-10-30] MEDS: metoPROLOL SUCCINATE 25 MG TAB.SR.24H (FP) PO SCH (11:24)
[2020-10-30] MEDS: methylPREDNISolone NA SUCC 40 MG/1 ML VIAL IVPB SCH ×2 (11:26→21:18)
[2020-10-30] MEDS: ENOXAPARIN NA (PORCINE) 40 MG/0.4 ML DISP.SYRIN SQ SCH (11:26)
[2020-10-30] MEDS: FAMOTIDINE 20 MG/50 ML IVPB 20 MG/50 ML MG IVPB SCH ×2 (12:12→21:18)
[2020-10-30] MEDS: guaiFENesin/CODEINE 10 ML UNIT-DOSE CUPS PO PRN ×2 (12:13→19:58)
[2020-10-30] MEDS: DRONABINOL 2.5 MG CAPSULE PO SCH ×2 (12:18→18:03)
[2020-10-30] MEDS: BENZONATATE 200 MG PO PRN (21:18)
[2020-10-31] MEDS: METOCLOPRAMIDE HCL INJECTION 10 MG/2 ML VIAL IVPUSH SCH ×4 (02:23→21:33)
[2020-10-31] MEDS: LEVOTHYROXINE NA 50 MCG TABLET (FP) PO SCH (06:12)
[2020-10-31] MEDS: INSULIN SLIDING SCALE (NOVOLOG) 1 VIAL SQ SCH ×4 (06:13→21:33)
[2020-10-31 07:30] LABS: HEMATOCRIT 27.8 % (32.4-45.2); HEMOGLOBIN 9.3 GM/dL (10.7-15.3); MCH 29.1 pg (25.7-33.7); MCHC 33.5 g/dl (32.0-36.0); MEAN CELL VOLUME 86.8 fl (80-96); MEAN PLT VOLUME 7.2 fl (7.5-11.1); PLATELET COUNT 232 10^3/uL (134-434); RDW 17.5 % (11.6-15.6); WHITE BLOOD COUNT 16.5 K/mm3 (4.0-10.0)
[2020-10-31 07:55] LABS: CREATININE 0.4 mg/dL (0.55-1.3)
[2020-10-31 07:56] LABS: PHOSPHOROUS 2.8 mg/dL (2.5-4.9)
[2020-10-31 07:57] LABS: BILIRUBIN,TOTAL 0.3 mg/dL (0.2-1); TOT PROT 5.4 g/dl (6.4-8.2)
[2020-10-31 08:39] LABS: ANISOCYTOSIS 0; MACROCYTOSIS 0; PLATELET ESTIMATE NORMAL
[2020-10-31] MEDS: methylPREDNISolone NA SUCC 40 MG/1 ML VIAL IVPB SCH ×2 (09:25→21:33)
[2020-10-31] MEDS: FAMOTIDINE 20 MG/50 ML IVPB 20 MG/50 ML MG IVPB SCH ×2 (09:25→21:33)
[2020-10-31] MEDS: AMINO ACIDS/PROTEIN HYDROLYS 30 ML LIQUID.PKT PO SCH ×2 (09:25→17:07)
[2020-10-31] MEDS: ENOXAPARIN NA (PORCINE) 40 MG/0.4 ML DISP.SYRIN SQ SCH (09:25)
[2020-10-31] MEDS: metoPROLOL SUCCINATE 25 MG TAB.SR.24H (FP) PO SCH (09:25)
[2020-10-31] MEDS: DRONABINOL 5 MG CAPSULE PO SCH ×2 (11:41→17:07)
[2020-10-31] MEDS: guaiFENesin/CODEINE 10 ML UNIT-DOSE CUPS PO PRN ×2 (14:20→18:42)
[2020-11-01] MEDS: METOCLOPRAMIDE HCL INJECTION 10 MG/2 ML VIAL IVPUSH SCH ×2 (03:56→09:15)
[2020-11-01] MEDS: LEVOTHYROXINE NA 50 MCG TABLET (FP) PO SCH (06:39)
[2020-11-01] MEDS: INSULIN SLIDING SCALE (NOVOLOG) 1 VIAL SQ SCH (06:39)
[2020-11-01 06:57] VITALS: BP 151/74; PULSE 55; TEMP 98.1
[2020-11-01 07:07] LABS: HEMATOCRIT 29.8 % (32.4-45.2); HEMOGLOBIN 9.9 GM/dL (10.7-15.3); MCH 29.1 pg (25.7-33.7); MCHC 33.2 g/dl (32.0-36.0); MEAN CELL VOLUME 87.7 fl (80-96); MEAN PLT VOLUME 7.6 fl (7.5-11.1); PLATELET COUNT 176 10^3/uL (134-434); RDW 17.5 % (11.6-15.6); WHITE BLOOD COUNT 17.3 K/mm3 (4.0-10.0)
[2020-11-01 07:45] LABS: BLOOD UREA NITROGEN 14.4 mg/dL (7-18); CALCIUM 8.2 mg/dL (8.5-10.1)
[2020-11-01 07:48] LABS: CREATININE 0.4 mg/dL (0.55-1.3)
[2020-11-01 07:50] LABS: BILIRUBIN,TOTAL 0.4 mg/dL (0.2-1); TOT PROT 5.7 g/dl (6.4-8.2)
[2020-11-01] MEDS: metoPROLOL SUCCINATE 25 MG TAB.SR.24H (FP) PO SCH (09:10)
[2020-11-01] MEDS: FAMOTIDINE 20 MG/50 ML IVPB 20 MG/50 ML MG IVPB SCH (09:10)
[2020-11-01 09:11] LABS: ANISOCYTOSIS 0; MACROCYTOSIS 0; PLATELET ESTIMATE NORMAL
[2020-11-01] MEDS: ENOXAPARIN NA (PORCINE) 40 MG/0.4 ML DISP.SYRIN SQ SCH (09:11)
[2020-11-01] MEDS: methylPREDNISolone NA SUCC 40 MG/1 ML VIAL IVPB SCH (09:30)
[2020-11-01] MEDS ORDERED: methylPREDNISolone NA SUCC 40 MG/1 ML VIAL IVPB SCH (11:07)
[2020-11-01] MEDS: AMINO ACIDS/PROTEIN HYDROLYS 30 ML LIQUID.PKT PO SCH (11:30)
[2020-11-01 16:09] LABS: ATYPICAL pANCA <1:20 titer (Neg:<1:20); C-ANCA <1:20 titer (Neg:<1:20)
== END 2020-11-01 11:41 | disposition short-term general hospital (02) | DRG 193 ==
LOC: JER 21:51 → JERBED 10-21 01:08 → J4S 10-21 08:57 → J6S 10-24 19:03 → JICU 10-30 18:44 → J4S 10-31 00:53
PROVIDERS: ADMIT Internal Medicine; ATTEND Internal Medicine
DX: J18.9 Pneumonia, unspecified organism (principal); J96.01 Acute respiratory failure with hypoxia; E87.1 Hypo-osmolality and hyponatremia; M62.82 Rhabdomyolysis; R64 Cachexia; C78.7 Secondary malignant neoplasm of liver and intrahepatic bile duct; C78.00 Secondary malignant neoplasm of unspecified lung; C56.9 Malignant neoplasm of unspecified ovary; R74.01 Elevation of levels of liver transaminase levels; E11.9 Type 2 diabetes mellitus without complications; E03.9 Hypothyroidism, unspecified; I10 Essential (primary) hypertension; Z68.21 Body mass index [BMI] 21.0-21.9, adult; C54.1 Malignant neoplasm of endometrium; F41.9 Anxiety disorder, unspecified; D72.829 Elevated white blood cell count, unspecified; N28.1 Cyst of kidney, acquired; B94.8 Sequelae of other specified infectious and parasitic diseases
CPT/HCPCS: 36415; 71045-TC-FY; 71275-TC; 74178-TC; 76705-TC; 80048; 80053; 80061; 80076; 81003; 82140; 82533; 82550; 82553; 82728; 82803; 82962; 83036; 83520; 83540; 83550; 83615; 83735; 84100; 84436; 84443; 84484; 85025; 85027; 85379; 85384; 85610; 85651; 85730; 86038; 86140; 86256; 86431; 86704; 86705; 86708; 86709; 86803; 87040; 87081; 87324; 87340; 87449; 87899; 93005; 93010; 93970-TC; 94010; 94761; 97116-GP; 97162-GP; 99285-25; C9803; J0131; J1100; Q9967; U0003; U0005